=== PATIENT | male | born 1980 | race Caucasian/White ===

== ENCOUNTER → 2017-03-07 | Outpatient (CLI) | payer BC ==
--- NOTE | 2017-03-07 11:40 | US ---
EXAMINATION TYPE: US venous doppler duplex LE RT DATE OF EXAM: 03/07/2017 11:22 AM COMPARISON: NONE CLINICAL HISTORY: 36-year-old male M79.661 Pain right lower limb. Right calf cramp x 2 days SIDE PERFORMED: Right TECHNIQUE: The lower extremity deep venous system is examined utilizing real time linear array sonog arsalan with graded compression, doppler sonography and color-flow sonography. VESSELS IMAGED: External Iliac Vein (EIV) Common Femoral Vein Deep Femoral Vein Greater Saphenous Vein * Femoral Vein Popliteal Vein Small Saphenous Vein * Proximal Calf Veins (* superficial vessels) Right Leg: Appears negative for DVT IMPRESSION: No evidence for DVT within the right lower extremity imaged from the groin to the upper calf.
--- NOTE | 2017-03-07 12:22 | XR ---
EXAMINATION TYPE: XR tibia fibula RT DATE OF EXAM: 03/07/2017 COMPARISON: NONE HISTORY: 36-year-old male with pain and pressure after 4 lantigua injury. TECHNIQUE: 2 views FINDINGS: No acute fracture identified. No periostitis or osteolysis. Tiny corticated density below the medial malleolus suggests sequela of remote injury. Probable small loose body posterior ankle. IMPRESSION: No acute osseous abnormality seen. If concern for a significant soft tissue injury to the calf, MRI c an be considered.
[2017-03-07 12:36] LABS: Basophils # (A) 0.1 k/uL (0-0.2); Basophils % (A) 0 %; CHCM 34.3; Eosinophils # (A) 0.1 k/uL (0-0.7); Eosinophils % (A) 0 %; HCT 43.6 % (39.0-53.0); HDW 2.58; HGB 15.1 gm/dL (13.0-17.5); Luc # (Auto) 0.12; Luc % (Auto) 1; Lymphocytes # (A) 1.8 k/uL (1.0-4.8); Lymphocytes % (A) 14 %; MCH 32.3 pg (25.0-35.0); MCHC 34.6 g/dL (31.0-37.0); MCV 93.6 fL (80.0-100.0); Mean Platelet Volume 7.1; Monocytes # (A) 0.6 k/uL (0-1.0); Monocytes % (A) 5 %; Neutrophils % (A) 79 %; RBC 4.66 m/uL (4.30-5.90); RDW 13.4 % (11.5-15.5); WBC 12.6 k/uL (3.8-10.6); WBC (Perox) 12.86
[2017-03-07 12:44] LABS: ALT 44 U/L (21-72); AST 36 U/L (17-59); Alkaline Phosphatase 71 U/L (38-126); Anion Gap 8 mmol/L; Blood Urea Nitrogen 14 mg/dL (9-20); Calcium 9.3 mg/dL (8.4-10.2); Carbon Dioxide 22 mmol/L (22-30); Chloride 108 mmol/L (98-107); Creatine Kinase 475 U/L (55-170); Glucose 86 mg/dL (74-99); Magnesium 2.1 mg/dL (1.6-2.3); Non-African American GFR(MDRD) >60 (>60 ml/min/1.73 sqM); Potassium 4.3 mmol/L (3.5-5.1); Sodium 138 mmol/L (137-145); Total Bilirubin 0.5 mg/dL (0.2-1.3); Total Protein 7.1 g/dL (6.3-8.2)
[2017-03-07 14:06] LABS: Erythrocyte Sedimentation Rate 2 mm/hr (0-15)
== END ==
LOC: RADUSWWP 10:52
PROVIDERS: ATTEND Family Medicine
DX: M79.661 Pain in right lower leg (principal); M79.604 Pain in right leg
CPT/HCPCS: 80053; 82550; 83735; 85025; 85652

== ENCOUNTER → 2017-12-13 | Outpatient (CLI) | payer BC ==
--- NOTE | 2017-12-13 10:05 | CT ---
EXAMINATION TYPE: CT soft tissue neck w con DATE OF EXAM: 12/13/2017 HISTORY: Chronic laryngitis; Nicotine dependence, and localized swelling and/or mass in neck all per order. Chronic coarseness per patient. COMPARISON: NONE CT DLP: 401.80 mGycm. Automated Exposure Control for Dose Reduction was Utilized. TECHNIQUE: CT scan of the neck is performed with IV Contrast, patient injected with 100 ml mL of Iso sidra 370, axial images are obtained, coronal and sagittal reformatted images are reviewed. FINDINGS: Airway: Nasopharyngeal and oropharyngeal airways are patent. There is slightly some lobulated soft ti ssue involving the anterior aspect of the vallecula on sagittal images, this is less suspicious on ax ial images and is felt to reflect lingular tonsillar hypertrophy given symmetry. No thickening of the epiglottis is seen. No suspicious enhancing mass is present. Remainder hypopharyngeal airway is felt within normal limits. Thyroid gland is normal in size. Visualized lung apices are clear. Parotid/submandibular glands: No gross abnormality seen. Carotid/Vascular Structures: There is no significant plaque or stenosis at carotid bulb level bilater ally. There is 4 vessel origin from arch which is normal variant. Osseous Structures: No suspicious finding is seen. Other: Parapharyngeal fat spaces are symmetric and maintained. There are some prominent but subcentim eter lymph nodes seen throughout the neck bilaterally, largest anterior to carotid and jugular vessel s on the right measures 1.1 x 0.8 cm axial image 55. No greater than 1 cm adenopathy is seen. IMPRESSION: Lingular tonsillar hypertrophy is present. No worrisome mass or suspicious finding is ot herwise seen to account for patient's symptoms.
== END | disposition home or self-care (01) ==
LOC: RADCTMAIN 07:02
PROVIDERS: ATTEND Family Medicine
DX: J35.1 Hypertrophy of tonsils (principal); F17.210 Nicotine dependence, cigarettes, uncomplicated
CPT/HCPCS: 70491; Q9967

== ENCOUNTER → 2020-11-07 | Outpatient (CLI) | payer BC ==
--- NOTE | 2020-11-07 11:13 | P.STRESS ---
- Stress Test Note Stress Test Results/Findings: Exam Performed: NM stress cardiolite complete Exam Date: 11/07/20 Reason for Exam: CP, FHX Height: 5 ft 9 in Weight: 82 kg Protocol: CARDIOLITE STRESS TEST Stage: 5 Duration of Exercise: 13:02 Resting Heart Rate: 61 Resting Blood Pressure: 131/92 Maximum Achieved Heart Rate: 163 Maximum Achieved Blood Pressure: 190/111 85% PMHR: 152 100% PMHR: 179 METS: 13.5 Technologist Comment: Stress Test Results/Findings: This is a 40-year-old gentleman with history of smoking and family history of is chemic heart disease being evaluated for symptoms of chest pain. Stress data: Baseline EKG showed sinus rhythm. Blood pressure Is 130/92 with pulse rate of 61. Patient walked on the Pascual protocol for 13 minutes achieving a maximal heart rate of 163 with a blood pressure of 157/85. EKGs taken during and after x-ray did not reveal any change of ischemia. Patient did not experience any chest pain. Final impression #1. Negative stress test #2 patient did not experience any chest pain #3. No arrhythmias noted. #4. Good exercise capacity #5. Report on the nuclear portion to be provided by the radiologist
--- NOTE | 2020-11-07 15:39 | NM ---
EXAMINATION TYPE: NM stress cardiolite complete DATE OF EXAM: 11/07/2020 COMPARISON: NONE HISTORY: Chest pain, R07.89 TECHNIQUE: After the intravenous administration of 9.4 mCi Tc 99m Sestamibi - Rest images obtained 5 5 minutes post injection. The patient exercised using a TIMOTHY protocol and 1 minute prior to peak e xercise was injected with 25.4 mCi Tc 99m Sestamibi - Stress images obtained 18 minutes post injectio n. FINDINGS: Targeted heart rate was achieved during performance of the study. Review of stress and rest SPECT reji ges demonstrates no distinct perfusion abnormality. Gated analysis shows normal wall motion with an estimated left ventricular ejection fraction of 64 %. IMPRESSION: No scintigraphic evidence for reversible ischemia, consider echocardiographic correlation for elevate d ejection fraction
--- NOTE | 2020-11-10 08:53 | EST ---
Stress Test Results/Findings: Exam Performed: NM stress cardiolite complete Exam Date: 11/07/20 Reason for Exam: CP, FHX Height: 5 ft 9 in Weight: 82 kg Protocol: CARDIOLITE STRESS TEST Stage: 5 Duration of Exercise: 13:02 Resting Heart Rate: 61 Resting Blood Pressure: 131/92 Maximum Achieved Heart Rate: 163 Maximum Achieved Blood Pressure: 190/111 85% PMHR: 152 100% PMHR: 179 METS: 13.5 Technologist Comment: Stress Test Results/Findings: This is a 40-year-old gentleman with history of smoking and family history of ischemic heart disease being evaluated for symptoms of chest pain. Stress data: Baseline EKG showed sinus rhythm. Blood pressure Is 130/92 with pulse rate of 61. Patient walked on the Pascual protocol for 13 minutes achieving a maximal heart rate of 163 with a blood pressure of 157/85. EKGs taken during and after x-ray did not reveal any change of ischemia. Patient did not experience any chest pain. Final impression #1. Negative stress test #2 patient did not experience any chest pain #3. No arrhythmias noted. #4. Good exercise capacity #5. Report on the nuclear portion to be provided by the radiologist SUSHILA
== END | disposition home or self-care (01) ==
LOC: RADNMMAIN 08:27
PROVIDERS: ATTEND Family Medicine
DX: R07.9 Chest pain, unspecified (principal)
CPT/HCPCS: 93017; 78452; A9500